=== PATIENT | male | born 1985 | race Caucasian/White ===

== ENCOUNTER 2022-06-14 11:55 | Inpatient (IN) | payer BC ==
[~2022-06-14] VITALS: Ht 182.8 cm; Wt 124.3 kg
[2022-06-14 12:13] VITALS: BP 162/88
[2022-06-14 13:16] LABS: BASO % 0.6 % (0.0-1.0); EOS # 0.1 10*3/uL (0.0-0.4); EOS % 0.7 % (1.0-4.0); HEMATOCRIT 43.6 % (42.0-52.0); LYMPH # 1.6 10*3/uL (1.3-4.4); LYMPH % 22.4 % (27.0-41.0); MEAN CELL VOLUME 82.1 fl (80.0-94.0); MEAN CORPUSCULAR HGB 26.2 pg (27.0-31.0); MEAN CORPUSCULAR HGB CONC 31.9 g/dl (33.0-37.0); MEAN PLATELET VOLUME 9.4 fl (9.6-12.3); MONO # 0.5 10*3/uL (0.1-1.0); MONO % 6.9 % (3.0-9.0); NEUT % 69.1 % (47.0-73.0); PLATELET COUNT AUTOMATED 251 10*3/uL (130-400); RED BLOOD COUNT 5.31 10*6/uL (4.50-5.90); RED CELL DISTRI WIDTH 14.5 % (0-14.5); WHITE BLOOD COUNT 7.3 10*3/uL (4.8-10.8)
[2022-06-14 13:29] LABS: INTERNATIONAL NORM RATIO 0.9 (2.0-3.5)
[2022-06-14 13:30] LABS: ALKALINE PHOSPHATASE 106 U/L (46-116); BUN 11 mg/dl (9-23); CHLORIDE 105 mmol/L (98-107); POTASSIUM 3.8 mmol/L (3.4-5.1); SGPT/ALT 23 U/L (10-49); TOTAL PROTEIN 7.3 gm/dL (6.0-8.0)
[2022-06-14 13:40] LABS: BILIRUBIN Negative (Negative); BLOOD Negative (Negative); CLARITY Clear (Clear); COLOR Yellow (Yellow); GLUCOSE Negative (Negative); KETONE Negative (Negative); LEUKO ESTERASE Negative (Negative); NITRITE Negative (Negative); PH 7.5 (4.5-8.0); UROBILINOGEN 0.2 E.U./dl (0.0-1.0)
[2022-06-14 13:55] LABS: URINE AMPHETAMINES Negative (1000ng/ml); URINE BARBITURATES Negative (200ng/ml); URINE BENZODIAZEPINES Negative (200ng/ml); URINE CANNABINOIDS (THC) Negative (50ng/ml); URINE COCAINE Negative (300ng/ml); URINE METHADONE Negative (300ng/ml); URINE OPIATES Negative (300ng/ml); URINE PHENCYCLIDINE Negative (25ng/ml)
[2022-06-14 14:05] LABS: BACTERIA TRACE; RBC 0-2 rbc/hpf (0-2)
[2022-06-14 14:06] LABS: WBC 0-2 wbc/hpf (0-5)
[2022-06-14 14:45] VITALS: BP 136/76
[2022-06-14 20:00] VITALS: BP 134/69
[2022-06-15] VITALS: BP 122/69
[2022-06-15 08:00] VITALS: BP 133/55
[2022-06-15 12:00] VITALS: BP 129/52
[2022-06-15 16:00] VITALS: BP 138/53
[2022-06-15 20:00] VITALS: BP 142/55
[2022-06-16 08:00] VITALS: BP 128/53
[2022-06-16 12:00] VITALS: BP 133/72
[2022-06-16 16:00] VITALS: BP 151/73
[2022-06-16 20:00] VITALS: BP 151/70
[2022-06-17 08:00] VITALS: BP 129/90
[2022-06-17] MEDS ORDERED: ATARAX,VISTARIL50 MG PO (09:32)
[2022-06-17] MEDS ORDERED: ONDANSETRON HYDR4 M1 PO (09:32)
== END 2022-06-17 09:58 | disposition home or self-care (01) | DRG 897 ==
LOC: ED 11:55 → 4E 13:23 → EDHOLD 13:23 → 4E 13:52
PROVIDERS: Emergency Medicine; ADMIT Student in an Organized Health Care Education/Training Program; ATTEND Student in an Organized Health Care Education/Training Program
DX: F11.23 Opioid dependence with withdrawal (principal); F41.9 Anxiety disorder, unspecified; F17.210 Nicotine dependence, cigarettes, uncomplicated; Z88.0 Allergy status to penicillin; Z82.49 Family history of ischemic heart disease and other diseases of the circulatory system; E66.09 Other obesity due to excess calories; Z68.37 Body mass index [BMI] 37.0-37.9, adult